=== PATIENT | female | born 1965 | race Caucasian/White ===

== ENCOUNTER 2020-11-05 05:44 | Emergency (ER) | payer BC, OTHER ==
[2020-11-05 06:21] VITALS: BMI 27.5
[2020-11-05] MEDS ORDERED: ASPIRIN 325 MG TABLET PO ONE (08:00)
[2020-11-05] MEDS ORDERED: LACTATED RINGERS SOLUTION 1,000 ML/1,000 ML INFUS.BAG IV STA (08:00)
[2020-11-05] MEDS ORDERED: ASPIRIN 81 MG CHEWABLE TABLETS PO ONE (08:10)
[2020-11-05 08:38] LABS: BASO % 1.3 % (0-2.0); EOS % 1.7 % (0-4.5); HEMATOCRIT 42.2 % (32.4-45.2); HEMOGLOBIN 14.3 GM/dL (10.7-15.3); LYMPH % 25.9 % (8-40); MCH 32.6 pg (25.7-33.7); MCHC 33.8 g/dl (32.0-36.0); MEAN CELL VOLUME 96.6 fl (80-96); MEAN PLT VOLUME 9.4 fl (7.5-11.1); MONO % 11.6 % (3.8-10.2); NEUT % 59.5 % (42.8-82.8); PLATELET COUNT 253 K/MM3 (134-434); RBC 4.38 M/mm3 (3.60-5.2); RDW 12.5 % (11.6-15.6); WHITE BLOOD COUNT 7.4 K/mm3 (4.0-10.0)
[2020-11-05 08:40] LABS: INR 1.03 (0.83-1.09); PROTHROMBIN TIME (PATIENT) 12.5 SEC (9.7-13.0)
[2020-11-05 08:42] LABS: ACTIVATED PTT 31.5 SECONDS (25.2-36.5)
[2020-11-05 08:59] LABS: CHLORIDE 106 mmol/L (98-107); POTASSIUM 3.9 mmol/L (3.5-5.1); SODIUM 140 mmol/L (136-145)
[2020-11-05 09:01] LABS: ANION GAP 9 MMOL/L (8-16); BLOOD UREA NITROGEN 12.1 mg/dL (7-18); CALCIUM 8.9 mg/dL (8.5-10.1); CO2 25 mmol/L (21-32); GLUCOSE,RANDOM 81 mg/dL (74-106); MAGNESIUM 2.2 mg/dL (1.8-2.4)
[2020-11-05 09:04] LABS: CREATININE 0.8 mg/dL (0.55-1.3); SGOT/AST 14 U/L (15-37); SGPT/ALT 23 U/L (13-61)
[2020-11-05 09:06] LABS: BILIRUBIN,TOTAL 0.8 mg/dL (0.2-1); TOT PROT 7.4 g/dl (6.4-8.2)
[2020-11-05 09:07] LABS: ALK PHOS 61 U/L (45-117)
[2020-11-05] MEDS ORDERED: ACETAMINOPHEN 500 MG TABLET (FP) PO ONE (09:28)
[2020-11-05] MEDS ORDERED: ACETAMINOPHEN 500 MG TABLET (FP) ONE (09:40)
[2020-11-05 10:34] LABS: URINE APPEARANCE CLOUDY; URINE BILIRUBIN NEGATIVE (NEGATIVE); URINE COLOR YELLOW; URINE GLUCOSE (UA) NEGATIVE (NEGATIVE); URINE KETONE NEGATIVE (NEGATIVE); URINE PROTEIN NEGATIVE (NEGATIVE); URINE UROBILINOGEN 0.2 mg/dL (0.2-1.0)
[2020-11-05 10:35] LABS: EPI CELLS 15.2 /uL (0-25.1); HYALINE CASTS 3.85 /uL (0-3.1); URINE BACTERIA 1494.1 /uL (0-1359); URINE LEUK ESTERASE 2+ (NEGATIVE); URINE NITRITE NEGATIVE (NEGATIVE); URINE RBC 13.7 /uL (0-23.9); URINE WBC 248.8 /uL (0-25.8)
[2020-11-05] MEDS ORDERED: NITROFURANTOIN MACROCRYSTAL 50 MG CAPSULE (FP) PO ONE (11:00)
[2020-11-05] MEDS ORDERED: NITROFURANTOIN MACROCRYSTAL 50 MG CAPSULE (FP) ONE (11:39)
[2020-11-05 11:49] VITALS: BP 107/75; PULSE 77; TEMP 98.3
== END 2020-11-05 12:12 | disposition home or self-care (01) ==
LOC: JER 05:44
PROC: 3E0337Z Introduction of Electrolytic and Water Balance Substance into Peripheral Vein, Percutaneous Approach (ICD-10-PCS; principal; 2020-11-05)
DX: Q44.6 Cystic disease of liver (principal); R91.8 Other nonspecific abnormal finding of lung field; R07.9 Chest pain, unspecified; N30.01 Acute cystitis with hematuria
CPT/HCPCS: 36415; 71275-TC; 80053; 81003; 82550; 83735; 84484; 85025; 85610; 85730; 87086; 93005; 93010; 99285-25; C9803; Q9967; U0003

== ENCOUNTER 2022-09-12 04:24 | Day surgery (SDC) | payer BC, OTHER ==
[2022-09-09 09:40] VITALS: BMI 27.0
[2022-09-12 09:43] VITALS: TEMP 97.8
[2022-09-12 10:44] VITALS: BP 107/56; PULSE 65; RESP 22
== END 2022-09-12 10:57 | disposition home or self-care (01) ==
LOC: JASU-ENDO 04:24
PROVIDERS: ATTEND Internal Medicine Gastroenterology
PROC: 0DBL8ZX Excision of Transverse Colon, Via Natural or Artificial Opening Endoscopic, Diagnostic (ICD-10-PCS; 2022-09-12)
PROC: 0DBB8ZX Excision of Ileum, Via Natural or Artificial Opening Endoscopic, Diagnostic (ICD-10-PCS; 2022-09-12)
PROC: 0DB98ZX Excision of Duodenum, Via Natural or Artificial Opening Endoscopic, Diagnostic (ICD-10-PCS; 2022-09-12)
PROC: 0DB78ZX Excision of Stomach, Pylorus, Via Natural or Artificial Opening Endoscopic, Diagnostic (ICD-10-PCS; 2022-09-12)
PROC: 0DBH8ZX Excision of Cecum, Via Natural or Artificial Opening Endoscopic, Diagnostic (ICD-10-PCS; principal; 2022-09-12 09:00)
DX: Z12.11 Encounter for screening for malignant neoplasm of colon (principal); K29.40 Chronic atrophic gastritis without bleeding
CPT/HCPCS: 88305-TC; 88342-TC